=== PATIENT | female | born 1985 | race African-American/Black ===

== ENCOUNTER 2017-08-30 18:29 | Emergency (ER) | payer MEDICAID ==
[~2017-08-30] VITALS: Ht 157.5 cm; Wt 85.7 kg
[~2017-08-30 18:29] MED LIST: AMOX-277; ATEN50TA; GUAISYP5; HYDR25TA4; LISI-646
[2017-08-30 18:34] VITALS: BP 189/120
[2017-08-30] MEDS ORDERED: cloNIDine HCL 0.1 MG TAB PO ONE (19:00)
[2017-08-30 19:35] LABS: Urine Bilirubin Negative (Negative); Urine Blood Negative /uL (Negative); Urine Color Colorless (Yellow); Urine Glucose Normal (Normal); Urine Ketone Negative (Negative); Urine Nitrite Negative (Negative); Urine RBC <1 /hpf (0 - 4); Urine Squamous Epithelial Cell FEW /hpf (<5); Urine Urobilinogen Normal (Negative); Urine pH 5.5 (5.0-8.0)
[2017-08-30] MEDS ORDERED: HYDROcodone-ACET 10/325MG TAB PO ONE ×2 (22:30→22:45)
[2017-08-30] MEDS ORDERED: TETANUS-DIPTH-ACEL PERTUSSIS 0.5ML SYRG IM ONE (23:15)
[2017-08-30] MEDS ORDERED: cefTRIAXone 1GM/50ML D5W 50 ML IV ONE (23:15)
== END 2017-08-30 23:32 | disposition home or self-care (01) ==
LOC: ER 18:29
DX: S02.2XXA Fracture of nasal bones, initial encounter for closed fracture (principal); S00.83XA Contusion of other part of head, initial encounter; I10 Essential (primary) hypertension; Z90.49 Acquired absence of other specified parts of digestive tract; F17.210 Nicotine dependence, cigarettes, uncomplicated; Z12.10 Encounter for screening for malignant neoplasm of intestinal tract, unspecified; Z79.899 Other long term (current) drug therapy; Y08.89XA Assault by other specified means, initial encounter; Y93.89 Activity, other specified; Y99.8 Other external cause status; Y92.89 Other specified places as the place of occurrence of the external cause
CPT/HCPCS: 70450; 70486; 81001; 81025

== ENCOUNTER 2018-03-20 14:05 | Observation (INO) | payer MEDICAID ==
[2018-03-20 16:00] LABS: Urine Bacteria FEW /hpf (None Seen); Urine Blood Negative /uL (Negative); Urine Mucus FEW (None Seen); Urine Specific Gravity 1.021 (1.001-1.035); Urine WBC 1 /hpf (0 - 5)
== END 2018-03-20 16:40 | disposition home or self-care (01) | DRG 955 ==
LOC: LDRP 14:05
PROVIDERS: ADMIT Obstetrics & Gynecology; ATTEND Obstetrics & Gynecology
DX: O23.40 Unspecified infection of urinary tract in pregnancy, unspecified trimester (principal); Z3A.00 Weeks of gestation of pregnancy not specified
CPT/HCPCS: 59025; 81001; 81002; G0378

== ENCOUNTER 2021-07-06 13:43 | Emergency (ER) | payer MEDICAID ==
[~2021-07-06] VITALS: Ht 157.5 cm; Wt 117.9 kg
[~2021-07-06 13:43] MED LIST changes: +GUAISYP12; -GUAISYP5; -LISI-646; +LISI20TA28
[2021-07-06] MEDS ORDERED: cloNIDine HCL 0.1 MG TAB PO ONE (16:30)
[2021-07-06] MEDS ORDERED: cloNIDine HCL 0.1 MG TAB ONE (17:22)
[2021-07-06] MEDS ORDERED: TETANUS-DIPTH-ACEL PERTUSSIS 0.5ML SYR Tdap IM ONE (18:00)
[2021-07-06 18:35] VITALS: BP 176/73
== END 2021-07-06 18:32 | disposition home or self-care (01) ==
LOC: ER 13:45
DX: S63.690A Other sprain of right index finger, initial encounter (principal); S60.052A Contusion of left little finger without damage to nail, initial encounter; S60.511A Abrasion of right hand, initial encounter; Z79.899 Other long term (current) drug therapy; Z90.89 Acquired absence of other organs; Y08.89XA Assault by other specified means, initial encounter; Y93.89 Activity, other specified; Y92.89 Other specified places as the place of occurrence of the external cause; Y99.8 Other external cause status
CPT/HCPCS: 73130; 90471; 90715